=== PATIENT | male | born 1955 | race Caucasian/White ===

== ENCOUNTER 2020-08-15 08:27 | Day surgery (SDC) | payer OTHER ==
[~2020-08-15] VITALS: Ht 180.3 cm; Wt 74.8 kg
[2020-08-15] MEDS ORDERED: METOPROLOL TARTRATE INJ 5 MG/5 ML AMPUL ONE (08:52)
[2020-08-15] MEDS ORDERED: NITROGLYCERIN 0.4 MG/TAB BOTTLE ONE (08:52)
[2020-08-15] MEDS ORDERED: CT SWABBABLE VALVE TRANS SET 1 EA INFUS.SET MC ONE (08:52)
[2020-08-15] MEDS ORDERED: IOHEXOL-350 100 ML VIAL IV ONE (08:53)
[2020-08-15] MEDS ORDERED: IV NS 0.9% 250 ML IV ONE (08:53)
--- NOTE | 2020-08-15 09:26 | NUR ---
Patient discharged to [facility] going back to [facility] in stable condition. Written and verbal after care instructions given. Patient and [facility] verbalized understanding of instruction.
[2020-08-15] MEDS ORDERED: METOPROLOL TARTRATE 50 MG TABLET PO PRN (09:30)
[2020-08-15] MEDS ORDERED: NITROGLYCERIN 0.4 MG/TAB BOTTLE SL ONE (09:30)
[2020-08-15 09:31] VITALS: BP 129/63
== END 2020-08-15 09:33 | disposition short-term general hospital (02) ==
LOC: CT 08:27
PROVIDERS: ATTEND Internal Medicine Interventional Cardiology
DX: R07.9 Chest pain, unspecified (principal)
CPT/HCPCS: 75574; J3490; J7050; Q9967